=== PATIENT | male | born 1995 | race Caucasian/White ===

== ENCOUNTER 2017-04-05 20:52 | Emergency (ER) | payer BC ==
[~2017-04-05] VITALS: Ht 185.4 cm; Wt 86.2 kg
[2017-04-05 20:52] VITALS: BP_SYST 143
--- NOTE | 2017-04-05 21:00 | NUR ---
Patient to ER bed 7 to gown for evaluation. Side rails up. Report given to MERA MULLEN.
--- NOTE | 2017-04-05 21:15 | NUR ---
PT STATES HE HAD B/L EAR ACHE FOR A FEW DAYS. NOW RECENTLY ALSO HAS B/L THROAT SWELLING AND DIFFICULTY SWALLOWING. A/OX4, AFEBRILE. NO SOB OR DISTRESS. [id number]%. SAFETY PRECAUTIONS IN PLACE. WILL CONTINUE TO MONITOR.
--- NOTE | 2017-04-05 21:20 | NUR ---
ER Dr. HICKS at bedside examining patient.
--- NOTE | 2017-04-05 21:20 | NUR ---
Note undone in EDM - 04/06/17 at 0522 by SUSAN Patient given written and verbal discharge instructions and verbalizes understanding. ER MD DR. HICKS discussed with patient the results and treatment provided. Patient in stable condition. ID arm band removed. Rx of AMOXICILLIN given. Patient educated on pain management and to follow up with PMD. Pain Scale 2/10. STATES PAIN IS TOLERABLE, NO SOB OR DISTRESS. Opportunity for questions provided and answered.
[2017-04-05 21:30] VITALS: BP_SYST 143
--- NOTE | 2017-04-05 21:30 | NUR ---
Patient given written and verbal discharge instructions and verbalizes understanding. ER MD DR. HICKS discussed with patient the results and treatment provided. Patient in stable condition. ID arm band removed. Rx of AMOXICILLIN given. Patient educated on pain management and to follow up with PMD. Pain Scale 2/10. STATES PAIN IS TOLERABLE, NO SOB OR DISTRESS. Opportunity for questions provided and answered.
== END 2017-04-05 21:30 | disposition home or self-care (01) ==
LOC: SED 20:52
DX: J32.9 Chronic sinusitis, unspecified (principal); H92.03 Otalgia, bilateral
CPT/HCPCS: 99283